=== PATIENT | male | born 1935 | race Caucasian/White ===

== ENCOUNTER 2019-05-24 14:03 | Inpatient (IN) | payer MEDICARE, OTHER ==
[~2019-05-24] VITALS: Ht 182.9 cm; Wt 97.0 kg
[~2019-05-24 14:03] MED LIST: ALBU18HF INH; ASCO500T8 PO; ASPI-515 PO; B12/1TAB PO; BUDE10.2 INH; CA C1TAB35 PO; CETI10CA PO; CHOL200074 PO; ETOMIDATE 20 MG/10 ML ONE; FISH1CAP PO; FLAX1000 PO; GLUC15006 PO; GUAI400T66 PO; LEVO750T26 PO; LOSA1TAB22 PO; LOSA50TA2 PO; PRED10TA PO; PROPOFOL 100 ML IV ONE; RED600CA2 PO; SUCCINYLCHOLINE 20 MG/ML, 10ML ONE; TIOT18CA INH
[2019-05-24] MEDS ORDERED: MIDAZOLAM 1 MG/ML, 2ML ONE (14:26)
[2019-05-24] MEDS ORDERED: CEFTRIAXONE PMX 1GM/50ML 50 ML ONE (14:26)
[2019-05-24] MEDS ORDERED: PROPOFOL 100 ML IV PRN (14:27)
--- NOTE | 2019-05-24 14:28 | NUR ---
REQUESTED SEDATION FROM DR. TILLEY AND NOTIFIED HER OF BP OF 93/60.
[2019-05-24] MEDS ORDERED: PROPOFOL 10 MG/ML, 20ML ONE (14:30)
[2019-05-24] MEDS ORDERED: ETOMIDATE 20 MG/10 ML IV ONE (14:30)
[2019-05-24] MEDS ORDERED: SUCCINYLCHOLINE 20 MG/ML, 10ML IVPush ONE (14:30)
[2019-05-24] MEDS ORDERED: SODIUM CHLORIDE FLUSH 10ML SYR IVF ONE (14:30)
[2019-05-24] MEDS ORDERED: SODIUM CHLORIDE 0.9% 1,000ML IVBOLUS ONE ×3 (14:30→23:30)
[2019-05-24] MEDS ORDERED: AZITHROMYCIN 500 MG in SODIUM CHLORIDE 0.9% 250 ML IVPB ONE (14:30)
[2019-05-24] MEDS ORDERED: CEFTRIAXONE PMX 1GM/50ML 50 ML IVPB ONE (14:30)
[2019-05-24] MEDS ORDERED: SENNA/DOCUSATE TABLET NG PRN (15:00)
[2019-05-24] MEDS ORDERED: PHARMACY MAY ADJ FOR RENAL FX MC SCH (15:00)
[2019-05-24] MEDS ORDERED: LIDOCAINE-MPF 1%, 2ML ENDO PRN (15:00)
[2019-05-24] MEDS ORDERED: ACETAMINOPHEN 650 MG SUPP PR ONE (15:00)
[2019-05-24] MEDS ORDERED: BISACODYL 10 MG SUPP PR PRN (15:00)
[2019-05-24] MEDS ORDERED: LACTULOSE 20 GM/30 ML UDC NG PRN (15:00)
[2019-05-24] MEDS ORDERED: SENNA 176 MG/5 ML ORAL SOL NG PRN (15:00)
--- NOTE | 2019-05-24 15:00 | NUR ---
OG TUBE INSERTED WITH POSITIVE SOUNDS HEARD WITH AUSCULTATION OVER STOMACH WITH AIR INJECTION. GREEN FLUID ASIRATED THAT APPEARS TO BE STOMACH CONTENTS.
[2019-05-24 15:05] LABS: MEAN CORPUSCULAR HEMOGLOBIN 31.3 pg (27.5-34.5); MEAN CORPUSCULAR HGB CONC 32.3 g/dL (33.2-36.2); MEAN CORPUSCULAR VOLUME 96.7 fL (81-97); MEAN PLATELET VOLUME 8.4 fL (7.4-10.4); PLATELET COUNT 189 x10^3/uL (130-400); RED BLOOD COUNT 4.03 x10^6/uL (4.38-5.82); RED CELL DISTRIBUTION WIDTH 14.6 % (9.4-14.8)
[2019-05-24 15:06] LABS: ALBUMIN 2.6 g/dL (3.4-5.0); ANION GAP 7 mmol/L (5-15); CALCIUM 8.4 mg/dL (8.5-10.1); CHLORIDE 96 mmol/L (98-107)
[2019-05-24 15:10] LABS: TRIGLYCERIDES 69 mg/dL (50-200); TROPONIN I < 0.015 ng/mL (0.000-0.045)
[2019-05-24] MEDS ORDERED: FAMOTIDINE 20 MG/2 ML ONE (15:12)
[2019-05-24] MEDS ORDERED: ACETAMINOPHEN 650 MG SUPP ONE (15:12)
[2019-05-24] MEDS ORDERED: HEPARIN 5,000 UNITS/ML, 1ML ONE (15:12)
[2019-05-24] MEDS: FAMOTIDINE 20 MG/2 ML IV SCH (15:14)
--- NOTE | 2019-05-24 15:15 | NUR ---
BP 81/51 ON LEFT ARM AND 74/[address] TILLEY AT BEDSIDE. PREPARING FOR CENTRAL LINE INSERTION.
[2019-05-24] MEDS ORDERED: SODIUM CHLORIDE 0.9% 1,000 ML IV SCH (15:30)
[2019-05-24] MEDS ORDERED: CEFTRIAXONE PMX 1GM/50ML 50 ML IV SCH (15:30)
[2019-05-24] MEDS ORDERED: DOXYCYCLINE 100 MG in DEXTROSE 5% 250 ML IV SCH (15:30)
[2019-05-24] MEDS ORDERED: methylPREDNISolone SOD SUCC 125 MG/2 ML IVPush SCH (15:30)
[2019-05-24 15:51] LABS: MD YES
[2019-05-24 15:53] LABS: ANISOCYTOSIS 1+; BAND#(MANUAL) 2.29 x10^3/uL; BANDS%(MANUAL) 16 % (0-7); LYMPH#(MANUAL) 0.14 x10^3/uL (1-3.4); LYMPHS% (MANUAL) 1 % (22-44); METAMYELOCYTES# (MANUAL) 0.43 x10^3/uL (0-0); METAMYELOCYTES% (MANUAL) 3 % (0-1); MONOS#(MANUAL) 0.14 x10^3/uL (0.3-2.7); MONOS% (MANUAL) 1 % (2-9); SEGS% (MANUAL) 79 % (42-75)
[2019-05-24 15:54] LABS: <PLATELET ESTIMATE> ADEQUATE; <PLT MORPHOLOGY> NORMAL PLT MORPH; OVALOCYTES 1+
--- NOTE | 2019-05-24 16:07 | NUR ---
DR. TILLEY INSERTING CENTRAL LINE.
[2019-05-24] MEDS: NOREPINEPHRINE 4 MG in SODIUM CHLORIDE 0.9% 246 ML IV PRN ×2 (16:51→19:15)
--- NOTE | 2019-05-24 17:21 | NUR ---
BACK FROM CT. BP 56/32. CONTINUING TO TITRATE UP ON LEVOPHED.
[2019-05-24] MEDS ORDERED: SODIUM CHLORIDE FLUSH 10ML SYR IVF PRN (17:30)
--- NOTE | 2019-05-24 17:56 | NUR ---
BP 78/39. DR. TILLEY AWARE AND AT BEDSIDE. SECOND PRESSOR TO BE ORDERED. TEMP-SENSING VOSS INSERTED.
[2019-05-24] MEDS: PIPERACILLIN/TAZO/PMX 3.375GM 50 ML IV SCH (18:00)
[2019-05-24] MEDS ORDERED: MIDAZOLAM HCL 25 MG in SODIUM CHLORIDE 0.9% 245 ML IV PRN (18:11)
--- NOTE | 2019-05-24 18:16 | NUR ---
DECREASING PROPOFOL AT DR. TILLEY'S ORDER. DECREASED PROPOFOL TO 10MCG/KG/MIN. WILL ADD VERSED DRIP AND VASOPRESSIN.
[2019-05-24 18:21] LABS: ALBUMIN 2.7 g/dL (3.4-5.0); BILIRUBIN, DIRECT 0.4 mg/dL (0.1-0.2)
--- NOTE | 2019-05-24 18:21 | NUR ---
DR. TILLEY AT BEDSIDE SPEAKING WITH FAMILY. NO URUINE OUTPUT INTO BAG SINCE INSERTION. DR. TILLEY AWARE.
[2019-05-24 18:23] LABS: BILIRUBIN,INDIRECT 0.4 mg/dL (0.0-2.0); BILIRUBIN,TOTAL 0.8 mg/dL (0.2-1.0); TOTAL PROTEIN 6.2 g/dL (6.4-8.2)
[2019-05-24] MEDS: VASOPRESSIN 100 UNIT in SODIUM CHLORIDE 0.9% 495 ML IV PRN ×2 (18:32→18:35)
[2019-05-24] MEDS: HEPARIN 5,000 UNITS/ML, 1ML SQ SCH (18:32)
[2019-05-24] MEDS ORDERED: METRONIDAZOLE PMX 500MG/100ML 100 ML ONE (18:47)
[2019-05-24] MEDS ORDERED: PIPERACILLIN/TAZO/PMX 3.375GM 50 ML ONE (18:47)
[2019-05-24] MEDS ORDERED: methylPREDNISolone SOD SUCC 125 MG/2 ML ONE (18:48)
[2019-05-24 19:00] LABS: INTERNATIONAL NORMALIZED RATIO 1.17 (0.93-1.1); PROTHROMBIN TIME 12.2 Seconds (9.6-11.5)
--- NOTE | 2019-05-24 19:04 | NUR ---
SBAR TELEPHONE HAND-OFF REPORT GIVEN TO NIELS VELASQUEZ IN CCU. PT TO GO TO CCU ROOM SOON.
[2019-05-24] MEDS: METRONIDAZOLE PMX 500MG/100ML 100 ML IV SCH (19:17)
[2019-05-24] MEDS ORDERED: LIDOCAINE 1%, 10ML ONE (19:28)
--- NOTE | 2019-05-24 19:35 | NUR ---
Note deepakone in EDM - 05/24/19 at 1941 by EVAN ASSUMED CARE FROM JW BOWSER, ASHLEY GAN AND ALL RUNNING AT THIS TIME. VERSED STARTED AT THIS TIME. PT VASOPRESSIN TITRATED TO 0.04U/MIN, IR AT BEDSIDE TO PLACE DRAIN. CCU AWARE, PT VENTILATORS SETTING REMAIN AT 40%O2, TV 500 ON ASSIST CONTROL 18. PEEP AND RATE OF 18
--- NOTE | 2019-05-24 19:41 | NUR ---
ASSUMED CARE FROM JW BOWSER, ASHLEY ORGASNIZED AND ALL RUNNING AT THIS TIME. VERSED STARTED AT THIS TIME. PT VASOPRESSIN TITRATED TO 0.04U/MIN, IR AT BEDSIDE TO PLACE DRAIN. CCU AWARE, PT VENTILATORS SETTING REMAIN AT 40%O2, TV 500 ON ASSIST CONTROL 18. PEEP AND RATE OF 18
--- NOTE | 2019-05-24 19:44 | NUR ---
IV DRIPS WHEN TITRATED UNDER WRONG USER. SAME ADJUSMENTS MADE UNDER CORRECT RN NAME.
--- NOTE | 2019-05-24 19:48 | NUR ---
IR AT BEDSIDE NOW STARTING PROCEDURE.
--- NOTE | 2019-05-24 20:11 | NUR ---
PROP STOPPED,PROCEDURE COMPLETED. CALOS RT, ROSSY CARREROA AT AND THIS RN FOR TRANSPORT. DR. MOREAU QAT BEDSIDE AND SPEAKING WITH FAMILY AT THIS TIME.
--- NOTE | 2019-05-24 20:54 | NUR ---
PT TRANSPORTED TO CCU WITHOUT ISSUE. PT TRANSFER COMPLETE, CENTRAL LINES AND DRIPS AWKNOWLEDGED AT BEDSIDE BY EVA BOWSER.
--- NOTE | 2019-05-24 20:54 | NUR ---
BELONGINGS WERE ALL TAKEN BY . SMALL PULSE OX CASE, WITH NO DEVICE INSIDE WAS TUBED TO CCU.
[2019-05-24] MEDS ORDERED: NOREPINEPHRINE 16 MG in SODIUM CHLORIDE 0.9% 234 ML IV PRN (21:30)
[2019-05-24] MEDS ORDERED: VASOPRESSIN 100 UNIT in SODIUM CHLORIDE 0.9% 495 ML IV PRN (21:30)
[2019-05-24] MEDS ORDERED: LIDOCAINE 1%, 2ML INFIL PRN (21:30)
[2019-05-24] MEDS ORDERED: PHENYLEPHRINE 20 MG in SODIUM CHLORIDE 0.9% 248 ML IV PRN (21:30)
[2019-05-24] MEDS ORDERED: NOREPINEPHRINE 1 MG/ML, 4ML ONE (21:43)
[2019-05-25 00:35] LABS: CULTURE INDICATED? YES; MICROSCOPIC INDICATED
[2019-05-25] MEDS: METRONIDAZOLE PMX 500MG/100ML 100 ML IV SCH ×3 (02:56→19:34)
[2019-05-25] MEDS: SODIUM CHLORIDE 0.9% 1,000 ML IV SCH ×2 (02:56→20:49)
[2019-05-25] MEDS: FAMOTIDINE 20 MG/2 ML IV SCH ×2 (02:57→19:34)
[2019-05-25] MEDS: HEPARIN 5,000 UNITS/ML, 1ML SQ SCH ×3 (02:58→19:34)
[2019-05-25 03:01] LABS: MEAN CORPUSCULAR HEMOGLOBIN 31.4 pg (27.5-34.5); MEAN CORPUSCULAR HGB CONC 32.7 g/dL (33.2-36.2); MEAN CORPUSCULAR VOLUME 95.9 fL (81-97); MEAN PLATELET VOLUME 8.8 fL (7.4-10.4); PLATELET COUNT 174 x10^3/uL (130-400); RED BLOOD COUNT 3.54 x10^6/uL (4.38-5.82); RED CELL DISTRIBUTION WIDTH 14.7 % (9.4-14.8)
[2019-05-25 03:09] LABS: ANION GAP 9 mmol/L (5-15); CALCIUM 7.7 mg/dL (8.5-10.1); CHLORIDE 101 mmol/L (98-107); CREATININE 2.31 mg/dL (0.7-1.3)
[2019-05-25 03:20] LABS: MD YES
[2019-05-25 03:32] LABS: BANDS%(MANUAL) 17 % (0-7); LYMPH#(MANUAL) 0.36 x10^3/uL (1-3.4); LYMPHS% (MANUAL) 1 % (22-44); MONOS#(MANUAL) 0.36 x10^3/uL (0.3-2.7); MONOS% (MANUAL) 1 % (2-9); SEG#(MANUAL) 29.08 x10^3/uL (1.8-6.8); SEGS% (MANUAL) 81 % (42-75)
[2019-05-25 03:33] LABS: <PLATELET ESTIMATE> ADEQUATE; ANISOCYTOSIS 1+
[2019-05-25 03:34] LABS: <PLT MORPHOLOGY> NORMAL PLT MORPH
[2019-05-25] MEDS: MIDAZOLAM HCL 50 MG in SODIUM CHLORIDE 0.9% 240 ML IV PRN ×2 (03:51→20:49)
[2019-05-25] MEDS: PIPERACILLIN/TAZO/PMX 3.375GM 50 ML IV SCH ×3 (05:41→20:49)
[2019-05-25] MEDS: methylPREDNISolone SOD SUCC 125 MG/2 ML IVPush SCH ×2 (10:01→19:34)
[2019-05-25] MEDS: MICAFUNGIN 100 MG in SODIUM CHLORIDE 0.9% 100 ML IV SCH (10:02)
[2019-05-25 18:31] LABS: MEAN CORPUSCULAR HEMOGLOBIN 31.5 pg (27.5-34.5); MEAN CORPUSCULAR HGB CONC 32.7 g/dL (33.2-36.2); MEAN CORPUSCULAR VOLUME 96.2 fL (81-97); MEAN PLATELET VOLUME 9.4 fL (7.4-10.4); PLATELET COUNT 155 x10^3/uL (130-400); RED BLOOD COUNT 3.49 x10^6/uL (4.38-5.82); RED CELL DISTRIBUTION WIDTH 14.4 % (9.4-14.8)
[2019-05-25 18:41] LABS: MD YES
[2019-05-25 19:32] LABS: BAND#(MANUAL) 4.77 x10^3/uL; BANDS%(MANUAL) 16 % (0-7); LYMPHS% (MANUAL) 1 % (22-44); METAMYELOCYTES% (MANUAL) 2 % (0-1); MONOS% (MANUAL) 2 % (2-9); SEG#(MANUAL) 23.54 x10^3/uL (1.8-6.8); SEGS% (MANUAL) 79 % (42-75)
[2019-05-25 19:34] LABS: <PLATELET ESTIMATE> ADEQUATE; <PLT MORPHOLOGY> NORMAL PLT MORPH; <RBC MORPHOLOGY> NORMAL
[2019-05-26] MEDS: PIPERACILLIN/TAZO/PMX 3.375GM 50 ML IV SCH ×4 (02:52→20:14)
[2019-05-26] MEDS: METRONIDAZOLE PMX 500MG/100ML 100 ML IV SCH ×3 (03:32→18:59)
[2019-05-26] MEDS: HEPARIN 5,000 UNITS/ML, 1ML SQ SCH ×3 (03:32→20:01)
[2019-05-26 04:47] LABS: ANION GAP 5 mmol/L (5-15); CALCIUM 7.4 mg/dL (8.5-10.1); CHLORIDE 107 mmol/L (98-107); CREATININE 1.76 mg/dL (0.7-1.3)
[2019-05-26 05:05] LABS: MEAN CORPUSCULAR HEMOGLOBIN 31.5 pg (27.5-34.5); MEAN CORPUSCULAR HGB CONC 32.8 g/dL (33.2-36.2); MEAN CORPUSCULAR VOLUME 96.1 fL (81-97); MEAN PLATELET VOLUME 9.4 fL (7.4-10.4); PLATELET COUNT 133 x10^3/uL (130-400); RED BLOOD COUNT 3.22 x10^6/uL (4.38-5.82); RED CELL DISTRIBUTION WIDTH 14.5 % (9.4-14.8)
[2019-05-26 05:38] LABS: MD YES
[2019-05-26 05:39] LABS: BAND#(MANUAL) 1.86 x10^3/uL; BANDS%(MANUAL) 8 % (0-7); LYMPH#(MANUAL) 0.47 x10^3/uL (1-3.4); LYMPHS% (MANUAL) 2 % (22-44)
[2019-05-26 05:41] LABS: <RBC MORPHOLOGY> NORMAL; MONOS#(MANUAL) 0.93 x10^3/uL (0.3-2.7); MONOS% (MANUAL) 4 % (2-9); SEG#(MANUAL) 20.04 x10^3/uL (1.8-6.8); SEGS% (MANUAL) 86 % (42-75)
[2019-05-26 05:42] LABS: <PLATELET ESTIMATE> ADEQUATE; <PLT MORPHOLOGY> NORMAL PLT MORPH
[2019-05-26] MEDS: SODIUM CHLORIDE 0.9% 1,000 ML IV SCH ×2 (07:58→18:59)
[2019-05-26] MEDS: PROPOFOL 100 ML IV PRN (08:00)
[2019-05-26] MEDS: MICAFUNGIN 100 MG in SODIUM CHLORIDE 0.9% 100 ML IV SCH (08:27)
[2019-05-26] MEDS: methylPREDNISolone SOD SUCC 125 MG/2 ML IVPush SCH ×2 (09:53→20:01)
[2019-05-26] MEDS: FAMOTIDINE 20 MG/2 ML IV SCH (20:01)
[2019-05-26 20:32] LABS: TROPONIN I 0.292 ng/mL (0.000-0.045)
[2019-05-26] MEDS ORDERED: HEPARIN 5,000 UNITS/ML, 1ML IV ONE (21:00)
[2019-05-26] MEDS: HEPARIN 25,000 UNITS/500ML PMX 500 ML IV PRN (21:40)
[2019-05-26] MEDS ORDERED: ALBUTEROL SULFATE 2.5 MG/3 ML ONE (23:13)
[2019-05-27 02:08] LABS: TROPONIN I 0.209 ng/mL (0.000-0.045)
[2019-05-27] MEDS: METRONIDAZOLE PMX 500MG/100ML 100 ML IV SCH ×3 (02:44→20:00)
[2019-05-27] MEDS: SODIUM CHLORIDE 0.9% 1,000 ML IV SCH (03:04)
[2019-05-27] MEDS: PIPERACILLIN/TAZO/PMX 3.375GM 50 ML IV SCH ×4 (03:06→21:36)
[2019-05-27 04:15] LABS: MEAN CORPUSCULAR HEMOGLOBIN 31.6 pg (27.5-34.5); MEAN CORPUSCULAR HGB CONC 33.2 g/dL (33.2-36.2); MEAN CORPUSCULAR VOLUME 95.2 fL (81-97); MEAN PLATELET VOLUME 9.8 fL (7.4-10.4); PLATELET COUNT 108 x10^3/uL (130-400); RED BLOOD COUNT 3.56 x10^6/uL (4.38-5.82); RED CELL DISTRIBUTION WIDTH 14.8 % (9.4-14.8)
[2019-05-27 04:24] LABS: ALANINE AMINOTRANSFERASE 16 U/L (12-78); ALBUMIN 1.8 g/dL (3.4-5.0); ANION GAP 7 mmol/L (5-15); CALCIUM 7.7 mg/dL (8.5-10.1); CHLORIDE 111 mmol/L (98-107); CREATININE 1.46 mg/dL (0.7-1.3)
[2019-05-27 04:26] LABS: ALKALINE PHOSPHATASE 49 U/L (45-117); BILIRUBIN,TOTAL 0.3 mg/dL (0.2-1.0); TOTAL PROTEIN 4.8 g/dL (6.4-8.2)
[2019-05-27 04:34] LABS: BASOPHILS # (AUTO) 0.06 x10^3/uL (0-0.1); BASOPHILS % (AUTO) 0 % (0-1); EOSINOPHILS # (AUTO) 0.01 x10^3/uL (0-0.4); EOSINOPHILS % (AUTO) 0 % (1-7); LYMPHOCYTES # (AUTO) 0.62 x10^3/uL (1-3.4); LYMPHOCYTES % (AUTO) 4 % (22-44); MD SCAN; MONOCYTES % (AUTO) 2 % (2-9); NEUTROPHILS # (AUTO) 15.27 x10^3/uL (1.8-6.8); NEUTROPHILS % (AUTO) 94 % (42-75)
[2019-05-27] MEDS: HEPARIN 5,000 UNITS/ML, 1ML IV PRN ×2 (04:43→12:38)
[2019-05-27] MEDS ORDERED: FUROSEMIDE 40 MG/4 ML IV ONE (09:00)
[2019-05-27] MEDS: MICAFUNGIN 100 MG in SODIUM CHLORIDE 0.9% 100 ML IV SCH (09:04)
[2019-05-27] MEDS ORDERED: SODIUM CHLORIDE 0.9% 1,000 ML IV SCH (09:15)
[2019-05-27] MEDS ORDERED: ALBUTEROL/IPRATROPIUM 2.5MG/0.5MG, 3 ML ONE (14:07)
[2019-05-27] MEDS: ALBUTEROL/IPRATROPIUM 2.5MG/0.5MG, 3 ML NPPB SCH ×3 (14:08→22:30)
[2019-05-27] MEDS: HEPARIN 25,000 UNITS/500ML PMX 500 ML IV PRN ×2 (15:36→20:17)
[2019-05-27 18:34] LABS: MEAN CORPUSCULAR HEMOGLOBIN 31.4 pg (27.5-34.5); MEAN CORPUSCULAR HGB CONC 32.6 g/dL (33.2-36.2); MEAN CORPUSCULAR VOLUME 96.5 fL (81-97); PLATELET COUNT 115 x10^3/uL (130-400); RED BLOOD COUNT 3.71 x10^6/uL (4.38-5.82); RED CELL DISTRIBUTION WIDTH 14.9 % (9.4-14.8)
[2019-05-27 18:41] LABS: ANION GAP 6 mmol/L (5-15); CALCIUM 7.8 mg/dL (8.5-10.1); CHLORIDE 109 mmol/L (98-107); CREATININE 1.61 mg/dL (0.7-1.3)
[2019-05-27 18:49] LABS: MD YES
[2019-05-27 18:50] LABS: <RBC MORPHOLOGY> NORMAL; BAND#(MANUAL) 2.59 x10^3/uL; BANDS%(MANUAL) 14 % (0-7); LYMPH#(MANUAL) 0.93 x10^3/uL (1-3.4); LYMPHS% (MANUAL) 5 % (22-44); MONOS#(MANUAL) 0.37 x10^3/uL (0.3-2.7); MONOS% (MANUAL) 2 % (2-9); SEG#(MANUAL) 14.62 x10^3/uL (1.8-6.8); SEGS% (MANUAL) 79 % (42-75)
[2019-05-27 18:51] LABS: <PLATELET ESTIMATE> DECREASED; <PLT MORPHOLOGY> NORMAL PLT MORPH
[2019-05-27] MEDS: PROPOFOL 100 ML IV PRN (20:02)
[2019-05-27] MEDS: FAMOTIDINE 20 MG/2 ML IV SCH (21:36)
[2019-05-28] MEDS: ALBUTEROL/IPRATROPIUM 2.5MG/0.5MG, 3 ML NPPB SCH ×5 (02:16→19:32)
[2019-05-28] MEDS: PIPERACILLIN/TAZO/PMX 3.375GM 50 ML IV SCH ×4 (03:19→21:09)
[2019-05-28] MEDS: METRONIDAZOLE PMX 500MG/100ML 100 ML IV SCH (04:11)
[2019-05-28 05:01] LABS: ANION GAP 7 mmol/L (5-15); CALCIUM 7.8 mg/dL (8.5-10.1); CHLORIDE 111 mmol/L (98-107)
[2019-05-28 05:05] LABS: MEAN CORPUSCULAR HEMOGLOBIN 31.6 pg (27.5-34.5); MEAN CORPUSCULAR HGB CONC 32.6 g/dL (33.2-36.2); MEAN CORPUSCULAR VOLUME 96.7 fL (81-97); MEAN PLATELET VOLUME 10.2 fL (7.4-10.4); PLATELET COUNT 120 x10^3/uL (130-400); RED BLOOD COUNT 3.77 x10^6/uL (4.38-5.82); RED CELL DISTRIBUTION WIDTH 15.1 % (9.4-14.8)
[2019-05-28 05:33] LABS: MD YES
[2019-05-28 05:35] LABS: LYMPHS% (MANUAL) 7 % (22-44); METAMYELOCYTES# (MANUAL) 0.46 x10^3/uL (0-0); METAMYELOCYTES% (MANUAL) 2 % (0-1); MONOS#(MANUAL) 0.46 x10^3/uL (0.3-2.7); MONOS% (MANUAL) 2 % (2-9); SEG#(MANUAL) 20.38 x10^3/uL (1.8-6.8); SEGS% (MANUAL) 89 % (42-75)
[2019-05-28 05:36] LABS: <PLATELET ESTIMATE> DECREASED; <PLT MORPHOLOGY> NORMAL PLT MORPH; <RBC MORPHOLOGY> NORMAL
[2019-05-28] MEDS ORDERED: FUROSEMIDE 40 MG/4 ML IV ONE (09:00)
[2019-05-28] MEDS: MICAFUNGIN 100 MG in SODIUM CHLORIDE 0.9% 100 ML IV SCH (09:01)
[2019-05-28] MEDS: POTASSIUM CHLORIDE 20 MEQ TAB.ER.PRT PO SCH ×2 (10:15→18:59)
[2019-05-28] MEDS: INSULIN LISPRO 100 UNITS/ML, PEN SQ-INSULIN SCH ×3 (11:26→21:09)
[2019-05-28] MEDS: HEPARIN 25,000 UNITS/500ML PMX 500 ML IV PRN (15:26)
[2019-05-28] MEDS: FAMOTIDINE 20 MG/2 ML IV SCH (21:08)
[2019-05-28] MEDS: SODIUM CHLORIDE FLUSH 10ML SYR IVF SCH (21:11)
[2019-05-28] MEDS ORDERED: LORazepam 2 MG/ML, 1ML IVPush PRN (21:30)
[2019-05-29] MEDS: PIPERACILLIN/TAZO/PMX 3.375GM 50 ML IV SCH ×4 (03:36→21:04)
[2019-05-29 05:25] LABS: ANION GAP 2 mmol/L (5-15); CHLORIDE 111 mmol/L (98-107); CREATININE 1.28 mg/dL (0.7-1.3)
[2019-05-29 05:28] LABS: MEAN CORPUSCULAR HEMOGLOBIN 31.3 pg (27.5-34.5); MEAN PLATELET VOLUME 10.1 fL (7.4-10.4); PLATELET COUNT 130 x10^3/uL (130-400); RED BLOOD COUNT 3.71 x10^6/uL (4.38-5.82); RED CELL DISTRIBUTION WIDTH 15.2 % (9.4-14.8)
[2019-05-29] MEDS: INSULIN LISPRO 100 UNITS/ML, PEN SQ-INSULIN SCH ×4 (05:53→21:00)
[2019-05-29 05:54] LABS: MD YES
[2019-05-29 05:56] LABS: <PLATELET ESTIMATE> ADEQUATE; <PLT MORPHOLOGY> NORMAL PLT MORPH; <RBC MORPHOLOGY> NORMAL; LYMPH#(MANUAL) 1.99 x10^3/uL (1-3.4); LYMPHS% (MANUAL) 14 % (22-44); METAMYELOCYTES# (MANUAL) 0.28 x10^3/uL (0-0); METAMYELOCYTES% (MANUAL) 2 % (0-1); MONOS#(MANUAL) 0.85 x10^3/uL (0.3-2.7); MONOS% (MANUAL) 6 % (2-9); MYELOCYTES# (MANUAL) 0.14 x10^3/uL (0-0); MYELOCYTES% (MANUAL) 1 % (0-0); SEG#(MANUAL) 10.93 x10^3/uL (1.8-6.8); SEGS% (MANUAL) 77 % (42-75)
[2019-05-29] MEDS: HEPARIN 5,000 UNITS/ML, 1ML IV PRN (05:59)
[2019-05-29] MEDS: ALBUTEROL/IPRATROPIUM 2.5MG/0.5MG, 3 ML NPPB SCH ×4 (07:00→20:11)
[2019-05-29] MEDS: MICAFUNGIN 100 MG in SODIUM CHLORIDE 0.9% 100 ML IV SCH (08:50)
[2019-05-29] MEDS: SODIUM CHLORIDE FLUSH 10ML SYR IVF SCH ×2 (08:57→21:05)
[2019-05-29] MEDS: METOPROLOL TARTRATE 25 MG TABLET PO SCH ×2 (12:17→17:45)
[2019-05-29] MEDS ORDERED: SODIUM CHLORIDE NASAL SPRAY 45ML BOTTLE NAS PRN (14:30)
[2019-05-29 14:40] VITALS: BP 163/93
[2019-05-29] MEDS: HEPARIN 5,000 UNITS/ML, 1ML SQ SCH (16:43)
[2019-05-29 17:14] LABS: CLOSTRIDIUM DIFFICILE ANTIGEN NEGATIVE; CLOSTRIDIUM DIFFICILE TOXIN NEGATIVE (Negative)
[2019-05-29 19:14] VITALS: BP 139/72
[2019-05-29] MEDS: FAMOTIDINE 20 MG TABLET PO SCH (21:05)
[2019-05-30] MEDS: PIPERACILLIN/TAZO/PMX 3.375GM 50 ML IV SCH ×4 (03:35→20:50)
[2019-05-30] MEDS: HEPARIN 5,000 UNITS/ML, 1ML SQ SCH ×2 (03:35→15:32)
[2019-05-30 03:40] VITALS: BP 153/87
[2019-05-30 04:12] LABS: MEAN CORPUSCULAR HEMOGLOBIN 31.2 pg (27.5-34.5); MEAN CORPUSCULAR HGB CONC 32.5 g/dL (33.2-36.2); MEAN CORPUSCULAR VOLUME 95.9 fL (81-97); MEAN PLATELET VOLUME 9.9 fL (7.4-10.4); PLATELET COUNT 175 x10^3/uL (130-400); RED BLOOD COUNT 3.76 x10^6/uL (4.38-5.82); RED CELL DISTRIBUTION WIDTH 15.8 % (9.4-14.8)
[2019-05-30 04:19] LABS: ANION GAP 4 mmol/L (5-15); CALCIUM 8.2 mg/dL (8.5-10.1); CHLORIDE 109 mmol/L (98-107); CREATININE 1.03 mg/dL (0.7-1.3)
[2019-05-30 04:28] LABS: BASOPHILS # (AUTO) 0.02 x10^3/uL (0-0.1); BASOPHILS % (AUTO) 0 % (0-1); EOSINOPHILS # (AUTO) 0.12 x10^3/uL (0-0.4); EOSINOPHILS % (AUTO) 1 % (1-7); LYMPHOCYTES # (AUTO) 1.25 x10^3/uL (1-3.4); LYMPHOCYTES % (AUTO) 9 % (22-44); MD SCAN; MONOCYTES # (AUTO) 0.51 x10^3/uL (0.2-0.8); MONOCYTES % (AUTO) 4 % (2-9); NEUTROPHILS # (AUTO) 11.82 x10^3/uL (1.8-6.8); NEUTROPHILS % (AUTO) 86 % (42-75)
[2019-05-30] MEDS: METOPROLOL TARTRATE 25 MG TABLET PO SCH ×2 (06:38→17:25)
[2019-05-30 07:01] VITALS: BP 137/83
[2019-05-30] MEDS: ALBUTEROL/IPRATROPIUM 2.5MG/0.5MG, 3 ML NPPB SCH ×5 (08:02→20:17)
[2019-05-30] MEDS: INSULIN LISPRO 100 UNITS/ML, PEN SQ-INSULIN SCH ×4 (08:10→20:53)
[2019-05-30] MEDS: SODIUM CHLORIDE FLUSH 10ML SYR IVF SCH ×2 (09:41→20:51)
[2019-05-30] MEDS: MICAFUNGIN 100 MG in SODIUM CHLORIDE 0.9% 100 ML IV SCH (10:34)
[2019-05-30] MEDS ORDERED: ALBUTEROL SULFATE 2.5 MG/3 ML NPPB PRN (12:30)
[2019-05-30] MEDS ORDERED: IPRATROPIUM 0.5 MG/2.5 ML INHA HHN SCH (13:00)
[2019-05-30 14:17] VITALS: BP 126/63
[2019-05-30] MEDS: FUROSEMIDE 20 MG TABLET PO SCH (17:25)
[2019-05-30 19:55] VITALS: BP 115/70
[2019-05-30] MEDS: BUDESONIDE 0.5 MG/2 ML INHA INH SCH (20:17)
[2019-05-30] MEDS: FAMOTIDINE 20 MG TABLET PO SCH (20:51)
[2019-05-31 01:37] VITALS: BP 125/72
[2019-05-31] MEDS: ALBUTEROL/IPRATROPIUM 2.5MG/0.5MG, 3 ML NPPB SCH ×3 (02:54→14:30)
[2019-05-31] MEDS: HEPARIN 5,000 UNITS/ML, 1ML SQ SCH ×2 (03:11→15:03)
[2019-05-31] MEDS: PIPERACILLIN/TAZO/PMX 3.375GM 50 ML IV SCH ×3 (03:11→15:03)
[2019-05-31] MEDS: METOPROLOL TARTRATE 25 MG TABLET PO SCH ×2 (05:17→17:11)
[2019-05-31 06:24] LABS: ANION GAP 5 mmol/L (5-15); CHLORIDE 107 mmol/L (98-107); CREATININE 0.96 mg/dL (0.7-1.3)
[2019-05-31 07:27] VITALS: BP 146/85
[2019-05-31] MEDS: INSULIN LISPRO 100 UNITS/ML, PEN SQ-INSULIN SCH ×3 (07:29→16:13)
[2019-05-31] MEDS ORDERED: POTASSIUM CHLORIDE 20 MEQ PACKET PO SCH (08:30)
[2019-05-31] MEDS ORDERED: FUROSEMIDE 20 MG/2 ML IV ONE (08:30)
[2019-05-31] MEDS: BUDESONIDE 0.5 MG/2 ML INHA INH SCH (09:18)
[2019-05-31] MEDS: SODIUM CHLORIDE FLUSH 10ML SYR IVF SCH (10:14)
[2019-05-31 14:02] VITALS: BP 120/72
[2019-05-31] MEDS ORDERED: METO25TA35 PO (16:07)
[2019-05-31] MEDS: FUROSEMIDE 20 MG TABLET PO SCH (17:11)
[2019-06-22] MEDS ORDERED: LOSA100T14 PO (12:50)
[2019-06-22] MEDS ORDERED: AZIT250T PO (12:50)
[2019-06-22] MEDS ORDERED: TURM1POW PO (12:50)
[2019-06-22] MEDS ORDERED: FURO20TA3 PO (12:50)
[2019-06-22] MEDS ORDERED: BUDE10.2 INH (12:50)
[2019-06-28] MEDS ORDERED: OXYC-302 PO (08:39)
== END 2019-05-31 18:12 | DRG 871 ==
LOC: ED 14:31 → EDIP 17:05 → CCU 20:20 → 5SO 05-29 14:30
PROVIDERS: ADMIT Family Medicine; ATTEND Family Medicine
PROC: 0F9430Z Drainage of Gallbladder with Drainage Device, Percutaneous Approach (ICD-10-PCS; principal; 2019-05-24)
PROC: 0T9B70Z Drainage of Bladder with Drainage Device, Via Natural or Artificial Opening (ICD-10-PCS; 2019-05-24)
PROC: 5A09357 Assistance with Respiratory Ventilation, Less than 24 Consecutive Hours, Continuous Positive Airway Pressure (ICD-10-PCS; 2019-05-24)
PROC: 0BH17EZ Insertion of Endotracheal Airway into Trachea, Via Natural or Artificial Opening (ICD-10-PCS; 2019-05-24)
PROC: 02HV33Z Insertion of Infusion Device into Superior Vena Cava, Percutaneous Approach (ICD-10-PCS; 2019-05-24)
PROC: B548ZZA Ultrasonography of Superior Vena Cava, Guidance (ICD-10-PCS; 2019-05-24)
PROC: 5A1945Z Respiratory Ventilation, 24-96 Consecutive Hours (ICD-10-PCS; 2019-05-24)
DX: A41.51 Sepsis due to Escherichia coli [E. coli] (principal); J96.21 Acute and chronic respiratory failure with hypoxia; J69.0 Pneumonitis due to inhalation of food and vomit; I50.31 Acute diastolic (congestive) heart failure; R65.21 Severe sepsis with septic shock; D68.69 Other thrombophilia; E87.1 Hypo-osmolality and hyponatremia; J44.1 Chronic obstructive pulmonary disease with (acute) exacerbation; J98.11 Atelectasis; N17.9 Acute kidney failure, unspecified; K81.0 Acute cholecystitis; I11.0 Hypertensive heart disease with heart failure; E87.6 Hypokalemia; F17.210 Nicotine dependence, cigarettes, uncomplicated; G47.33 Obstructive sleep apnea (adult) (pediatric); I48.0 Paroxysmal atrial fibrillation; Z80.9 Family history of malignant neoplasm, unspecified; Z82.3 Family history of stroke; Z82.5 Family history of asthma and other chronic lower respiratory diseases; Z83.3 Family history of diabetes mellitus; Z85.46 Personal history of malignant neoplasm of prostate; Z90.79 Acquired absence of other genital organ(s); Z99.81 Dependence on supplemental oxygen
CPT/HCPCS: 31500; 36415; 36569; 36600; 51702; 71045; 74176; 75989; 80048; 80053; 80076; 81001; 82040; 82533; 82803; 82962; 83605; 83690; 83735; 83880; 84145; 84478; 84484; 85025; 85520; 85610; 85730; 87040; 87070; 87075; 87077; 87081; 87086; 87186; 87205; 87324; 93005; 93306; 94002; 94003; 94640; 96361; 96365; 96375; 99292; G0378; J0456; J0696; J1644; J1940; J2248; J2250; J2543; J2704; J7620; J7626; C1729; C1769; J0330; J1815; J2930; J3490; J7030; J7040; J7050